=== PATIENT | female | born 1995 | race Caucasian/White ===

== ENCOUNTER 2016-12-16 15:56 | Emergency (ER) | payer SELFPAY ==
--- NOTE | 2016-12-16 16:10 | EDM.PDOC ---
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 w f AB3.LNMP 10/31/2016 came to the ed because of vag spotting and suprapubic pain. No Dysuria. No N/V/D or any other acute medical issues. Onset: Today Onset Date: 12/16/16 Onset Time: 06:00 Duration: Hour(s): Location: Reports: Pelvis Quality: Reports: Other (no pain) Improves with: Reports: None Worsens with: Reports: None Associated Symptoms: Reports: No Other Symptoms Lower Abdomen Pain Score (Numeric/FACES): 5 - Related Data Allergies Allergy/AdvReac Type Severity Reaction Status Date / Time No Known Allergies Allergy Verified 12/16/16 16:08 Home Meds: Home Meds NK [No Known Home Meds] 12/16/16 [History] ED ROS GENERAL - Review of Systems Review Of Systems: See Below Constitutional: Reports: No Symptoms HEENT: Reports: No Symptoms Respiratory: Reports: No Symptoms Cardiovascular: Reports: No Symptoms Endocrine: Reports: No Symptoms GI/Abdominal: Reports: No Symptoms : Reports: Other (vag bleed) Musculoskeletal: Reports: No Symptoms Skin: Reports: No Symptoms Neurological: Reports: No Symptoms Psychiatric: Reports: No Symptoms Hematologic/Lymphatic: Reports: No Symptoms Immunologic: Reports: No Symptoms ED EXAM - Physical Exam Exam: See Below Exam Limited By: No Limitations General Appearance: Alert, WD/WN, No Apparent Distress Eye Exam: Bilateral Eye: Normal Inspection Ears: Normal External Exam Nose: Normal Inspection Throat/Mouth: Normal Inspection Head: Atraumatic, Normocephalic Neck: Normal Inspection Respiratory/Chest: No Respiratory Distress, Lungs Clear Cardiovascular: Normal Peripheral Pulses, Regular Rate, Rhythm, No Edema GI/Abdominal Exam: Normal Bowel Sounds, Soft, Non-Tender, No Organomegaly Rectal Exam: Deferred Neurological: Alert, Oriented, CN II-XII Intact, Normal Cognition Psychiatric: Normal Affect, Normal Mood Skin Exam: Warm, Dry, Intact, Normal Color Lymphatic: No Adenopathy Course - Vital Signs Text/Narrative:: \ 21 y.o. w f AB3.LNMP 10/31/2016 came to the ed because of vag spotting and suprapubic pain. No Dysuria. No N/V/D or any other acute medical issues. PE: WNWD WF, Pelvic exam deferred. Imaging: US pelvic: 4 weeks 9 days old No heart beat, yolk sack present. UA pos mary hematuria ( vag bleed?) Impression: 4 weeks 9 days old with Vag spotting Tx: recommended pelvic rest Plan: D/C with instructions Last Recorded V/S: Last Vital Signs Temp 36.4 C 12/16/16 16:10 Pulse 68 12/16/16 17:21 Resp 16 12/16/16 17:21 BP 125/73 12/16/16 17:21 Pulse Ox 100 12/16/16 17:21 - Orders/Labs/Meds Orders: Active Orders 24 hr Category Date Time Status OB Ltd 1 or More Fetus [US] Routine Exams 12/16/16 16:52 Taken OB Transvaginal [US] Routine Exams 12/16/16 16:52 Taken HCG QUANTITATIVE,SERUM [CHEM] Stat Lab 12/16/16 16:20 Received Labs: Laboratory Tests 12/16/16 12/16/16 12/16/16 Range/Units 16:20 16:20 16:24 WBC 8.8 (4.5-12.0) X10-3/uL RBC 4.51 (3.23-5.20) x10(6)uL Hgb 12.1 (11.5-15.5) g/dL Hct 36.6 (30.0-51.3) % MCV 81.2 (80-96) fL MCH 26.8 L (27.7-33.6) pg MCHC 33.0 (32.2-35.4) g/dL RDW 13.1 (11.5-15.5) % Plt Count 253 (125-369) X10(3)uL MPV 8.3 (7.4-10.4) fL Neut % (Auto) 57.0 (46-82) % Lymph % (Auto) 34.9 (13-37) % [place] % (Auto) 7.2 (4-12) % Eos % (Auto) 1 (1.0-5.0) % Baso % (Auto) 0 (0-2) % Neut # (Auto) 5.0 (1.6-8.3) # Lymph # (Auto) 3.1 (0.6-5.0) # [place] # (Auto) 0.6 (0.0-1.3) # Eos # (Auto) 0.1 (0.0-0.8) # Baso # (Auto) 0.0 (0.0-0.2) # Sodium 138 (135-145) mmol/L Potassium 3.6 (3.5-5.3) mmol/L Chloride 106 (100-110) mmol/L Carbon Dioxide 24 (23-29) mmol/L BUN 13 (5-20) mg/dL Creatinine 0.8 (0.6-1.3) mg/dL Est Cr Clr Drug Dosing 126.21 mL/min Estimated GFR (MDRD) > 60 (>60) BUN/Creatinine Ratio 16.3 (9-20) Glucose 100 (80-116) mg/dL Calcium 9.2 (8.6-10.2) mg/dL Urine Color Red (YELLOW) Urine Appearance Cloudy (CLEAR) Urine pH 9.0 H (5.0-6.5) Ur Specific [place] 1.015 (1.010-1.025) Urine Protein Negative (NEGATIVE) mg/dL Urine Glucose (UA) Normal (NEGATIVE) mg/dL Urine Ketones Negative (NEGATIVE) mg/dL Urine Occult Blood Large H (NEGATIVE) Urine Nitrite Negative (NEGATIVE) Urine Bilirubin Negative (NEGATIVE) Urine Urobilinogen Normal (NEGATIVE) mg/dL Ur Leukocyte Esterase Small H (NEGATIVE) Urine RBC Packed H (0) Urine WBC 0-5 (0) Ur Squamous Epith Cells Occasional (NS,R,O) Urine Bacteria Few H (NS) Departure - Departure Time of Disposition: 17:18 Disposition: Home, Self-Care 01 Condition: Good Clinical Impression: Vaginal spotting Qualifiers: Weeks of gestation: less than 8 weeks Qualified Code(s): Z3A.01 - Less than 8 weeks gestation of - Discharge Information Referrals: Eric Fernando MD [Primary Care Provider] - Forms: ED Department Discharge, ED Return to Work/School Form Additional Instructions: Pelvic rest till vag spotting stops. please f/u with OBGYN, please come back if your symptoms get worse acutely - My Orders Last 24 Hours: My Active Orders 12/16/16 16:20 HCG QUANTITATIVE,SERUM [CHEM] Stat 12/16/16 16:52 OB Ltd 1 or More Fetus [US] Routine OB Transvaginal [US] Routine - Assessment/Plan Last 24 Hours: My Active Orders 12/16/16 16:20 HCG QUANTITATIVE,SERUM [CHEM] Stat 12/16/16 16:52 OB Ltd 1 or More Fetus [US] Routine OB Transvaginal [US] Routine
[2016-12-16 17:22] VITALS: BP 125/73
--- NOTE | 2016-12-18 14:14 | US ---
INDICATION: Bleeding - . OB ULTRASOUND LIMITED: Multiple ultrasonic images revealed prominent endometrial cavity echo, poor visualization of the uterus and endometrium is noted. The endometrial cavity is not adequately visualized. Need endovaginal probe for further evaluation. The ovaries were not adequately visualized. IMPRESSION: Limited study, no gross abnormalities. Intrauterine gestation not identified. Cannot exclude ectopic. Need endovaginal probe ultrasound for further evaluation. INDICATION: Bleeding-/need better visualization of the endometrial cavity and uterus. OB ULTRASOUND TRANSVAGINAL: Utilizing transvaginal probe, multiple ultrasonic images revealed a tiny intrauterine cystic structure in the endometrial cavity, which would be compatible with 4 weeks 6 days gestational age. Compared with the LMP GA of 6 weeks 4 days, this is a significant discrepancy, but should be correlated clinically. A pole is not seen at this time and close follow-up is recommended. No definite myometrial mass was identified. The uterus was not ideally visualized on this examination, however, prominent arcuate vessels are noted. The ovaries measured on the right 1.11 x 2.43 x 1.22 cm. Follicles are present. No adnexal mass lesions or free fluid collections were identified. No definite ectopic could be identified. IMPRESSION: 1. No definite evidence for an ectopic . 2. What appears to be a very early intrauterine gestation of approximately 4 weeks 6 days is seen, but no evidence of a pole is identified, despite use of transvaginal probe. No heart motion was seen. Close follow-up is recommended. No specific bleeding site is identified. MTDD
== END 2016-12-16 17:23 | disposition home or self-care (01) ==
LOC: FB.ED 15:56
DX: O26.851 Spotting complicating pregnancy, first trimester (principal); Z3A.01 Less than 8 weeks gestation of pregnancy
CPT/HCPCS: 36415; 76815; 76817; 80048; 81001; 84702; 85025; 99283; 99284

== ENCOUNTER 2018-11-19 19:50 | Emergency (ER) | payer SELFPAY ==
[2018-11-19] MEDS ORDERED: Cyclobenzaprine 10 MG Tab PO ONE (19:55)
[2018-11-19] MEDS ORDERED: Ketorolac 30 MG/ML SDV IVPUSH ONE (19:55)
[2018-11-19] MEDS ORDERED: HYDROmorphone 2 MG/ML SDV IVPUSH ONE (20:08)
[2018-11-19] MEDS ORDERED: Sodium Chloride 0.9% 1,000 ML IV SCH (20:45)
--- NOTE | 2018-11-19 21:34 | EDM.PDOC ---
ED HPI GENERAL MEDICAL PROBLEM - General Chief Complaint: Lower Extremity Injury/Pain Stated Complaint: LEG PAIN BOTH SIDES Time Seen by Provider: 11/19/18 19:50 Source of Information: Reports: Patient - History of Present Illness INITIAL COMMENTS - FREE TEXT/NARRATIVE: Patient is a 23 yo WF who presented to the ED because sudden onset of severe muscle spasm of her bilateral lower extremities. She was running when the spasm started. She fell because of the pain. She rate it at 10/10,. She also c/o mild lower back pain. there in no lose of bowel or bladder control. Enroute here EMS gave her zofran 4 mg IV,fentanyl 200 mcg IV x1.versed 2 mg ivx1 and her pain is still 10/10. 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 Denies: Wheezing, Pleuritic Chest Pain Cardiovascular: Reports: No Symptoms, Chest Pain, Irregular Heart Rate, Lightheadedness, Palpitations GI/Abdominal: Reports: No Symptoms, Abdominal Pain ED EXAM, GENERAL - Physical Exam Exam: See Below Exam Limited By: No Limitations General Appearance: Alert, No Apparent Distress Eye Exam: Bilateral Eye: PERRL Ears: Normal External Exam, Normal Canal Nose: Normal Inspection, Normal Mucosa, No Blood Throat/Mouth: Normal Inspection, Normal Lips, Normal Teeth, Normal Gums, Normal Oropharynx, Normal Voice, No Airway Compromise Head: Atraumatic, Normocephalic GI/Abdominal: Normal Bowel Sounds, Non-Tender, No Organomegaly, No Distention, No Abnormal Bruit (Female) Exam: Normal External Exam, Normal Speculum Exam, Normal Bimanual Exam Rectal (Female) Exam: Deferred Back Exam: Normal Inspection, Full Range of Motion, CVA Tenderness (L) Extremities: Normal Inspection, Other (instense muscle spasm of the lower ext- bilateral.) Neurological: Alert, Oriented, CN II-XII Intact, Normal Reflexes, No Motor/ Sensory Deficits Psychiatric: Normal Affect, Normal Mood Skin Exam: Warm Course - Vital Signs Text/Narrative:: by EMS: zofran 4 mg IV x1 Fentanyl 2 mg IV x1 versed 2 mg IV x1 by ED: toradol 30 mg IV x1 flexeril 10 mh po x1 dilaudid 2 mg IV x1 dose zofran 4 mg IV He pain level is down to a one. Lab and CT reviewed with the patient and her family. Last Recorded V/S: Last Vital Signs Temp 36.8 C 11/19/18 19:50 Pulse 64 11/19/18 20:54 Resp 18 11/19/18 20:54 BP 111/59 L 11/19/18 20:54 Pulse Ox 98 11/19/18 20:54 - Orders/Labs/Meds Orders: Active Orders 24 hr Category Date Time Status Lumbar Spine wo Cont [CT] Stat Exams 11/19/18 20:00 Ordered Ondansetron [Zofran] Med 11/19/18 21:42 Once 4 mg IVPUSH ONETIME ONE Sodium Chloride 0.9% [Normal Saline] 1,000 ml Med 11/19/18 20:45 Active IV ASDIRECTED Medication Orders Sodium Chloride (Normal Saline) 1,000 mls @ 999 mls/hr IV ASDIRECTED MELISSA Last Admin: 11/19/18 20:42 Dose: 999 mls/hr Labs: Laboratory Tests 11/19/18 11/19/18 11/19/18 Range/Units 20:10 20:10 20:10 WBC 12.9 H (4.5-12.0) X10-3/uL RBC 4.94 (3.23-5.20) x10(6)uL Hgb 13.7 (11.5-15.5) g/dL Hct 40.1 (30.0-51.3) % MCV 81.2 (80-96) fL MCH 27.8 (27.7-33.6) pg MCHC 34.3 (32.2-35.4) g/dL RDW 12.3 (11.5-15.5) % Plt Count 300 (125-369) X10(3)uL MPV 8.6 (7.4-10.4) fL Neutrophils % (Manual) 45 L (46-82) % Lymphocytes % (Manual) 53 H (13-37) % Monocytes % (Manual) 2 L (4-12) % Sodium 141 (135-145) mmol/L Potassium 3.5 (3.5-5.3) mmol/L Chloride 105 (100-110) mmol/L Carbon Dioxide 25 (21-32) mmol/L BUN 16 (7-18) mg/dL Creatinine 1.0 (0.55-1.02) mg/dL Est Cr Clr Drug Dosing 99.24 mL/min Estimated GFR (MDRD) > 60 (>60) BUN/Creatinine Ratio 16.0 (9-20) Glucose 117 H (80-116) mg/dL Calcium 9.4 (8.6-10.2) mg/dL Magnesium 1.7 L (1.8-2.5) mg/dL HCG, Quant < 5 L (<5) mIU/mL Meds: Medications Generic Name Dose Route Start Last Admin Trade Name Freq PRN Reason Stop Dose Admin Sodium Chloride 1,000 mls @ 999 mls/hr 11/19/18 20:45 11/19/18 20:42 Normal Saline IV 999 mls/hr ASDIRECTED MELISSA Administration Discontinued Medications Generic Name Dose Route Start Last Admin Trade Name Freq PRN Reason Stop Dose Admin Cyclobenzaprine HCl 10 mg 11/19/18 19:55 11/19/18 20:08 Flexeril PO 11/19/18 19:56 10 mg ONETIME ONE Administration Hydromorphone HCl 2 mg 11/19/18 20:08 11/19/18 20:26 Dilaudid IVPUSH 11/19/18 20:09 2 mg ONETIME ONE Administration Ketorolac Tromethamine 30 mg 11/19/18 19:55 11/19/18 20:07 Toradol IVPUSH 11/19/18 19:56 30 mg ONETIME ONE Administration Departure - Departure Time of Disposition: 22:00 Disposition: Home, Self-Care 01 Condition: Good Clinical Impression: Muscle spasm of both lower legs - Discharge Information Forms: ED Department Discharge Additional Instructions: apply ice or heat whichever makes the spasm and pain go away. flexeril 10 mg 3 times daily as neded for muscle spam. increase oral fluids ibuprofen 800 mg with tylenol 1000 mg every 8 hours as needed for pain folluw up if symptoms persist - My Orders Last 24 Hours: My Active Orders 11/19/18 20:00 Lumbar Spine wo Cont [CT] Stat 11/19/18 20:45 Sodium Chloride 0.9% [Normal Saline] 1,000 ml IV ASDIRECTED 11/19/18 21:42 Ondansetron [Zofran] 4 mg IVPUSH ONETIME ONE - Assessment/Plan Last 24 Hours: My Active Orders 11/19/18 20:00 Lumbar Spine wo Cont [CT] Stat 11/19/18 20:45 Sodium Chloride 0.9% [Normal Saline] 1,000 ml IV ASDIRECTED 11/19/18 21:42 Ondansetron [Zofran] 4 mg IVPUSH ONETIME ONE
[2018-11-19] MEDS ORDERED: Ondansetron 4 MG/2 ML SDV IVPUSH ONE (21:42)
[2018-11-19 21:56] VITALS: BP 107/48
== END 2018-11-19 22:28 | disposition home or self-care (01) ==
LOC: FB.ED 19:50
DX: M62.838 Other muscle spasm (principal)
CPT/HCPCS: 36415; 72131; 80048; 83735; 84702; 85025; 96361; 96374; 96375; 99284; A9270; J1170; J1885; J2405; J7030

== ENCOUNTER 2019-12-06 21:28 | Emergency (ER) | payer BC, MEDICAID ==
--- NOTE | 2019-12-06 21:51 | EDM.PDOC ---
ED HPI GENERAL MEDICAL PROBLEM - General Stated Complaint: ABDOMINAL PAIN, RIB PAIN, BACK PAIN Time Seen by Provider: 12/06/19 21:48 Source of Information: Reports: Patient History Limitations: Reports: No Limitations - History of Present Illness INITIAL COMMENTS - FREE TEXT/NARRATIVE: Marely complains of right upper back pain x 2 weeks.Went to a chiropractor wth no relief. Tonight she had difficulty breathing associated with it,and wheezing. She also endorses epispastic pain after she drank some alcohol. 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 ED EXAM, GENERAL - Physical Exam Exam: See Below Exam Limited By: No Limitations General Appearance: Alert, No Apparent Distress, Anxious Ears: Normal External Exam Nose: Normal Inspection Throat/Mouth: Normal Inspection Head: Atraumatic Neck: Normal Inspection Respiratory/Chest: No Respiratory Distress, Other (Tender uppewr back,right) Cardiovascular: Normal Peripheral Pulses, Regular Rate, Rhythm, No Edema GI/Abdominal: Normal Bowel Sounds, Soft, Non-Tender Back Exam: Normal Inspection Extremities: Normal Inspection Neurological: Alert, Oriented Psychiatric: Anxious, Tearful Skin Exam: Warm Course - Vital Signs Last Recorded V/S: Last Vital Signs Temp 97.6 F 12/06/19 21:35 Pulse 109 H 12/06/19 21:35 Resp 18 12/06/19 21:35 BP 117/83 12/06/19 21:35 Pulse Ox 99 12/06/19 21:35 - Orders/Labs/Meds Orders: Active Orders 24 hr Category Date Time Status Chest 2V [CR] Stat Exams 12/06/19 21:47 Taken hydrOXYzine HCL [Vistaril] Med 12/06/19 22:45 Once 50 mg IM ONETIME ONE Labs: Laboratory Tests 12/06/19 12/06/19 12/06/19 Range/Units 22:08 22:08 22:08 WBC 8.7 (4.5-12.0) X10-3/uL RBC 4.85 (3.23-5.20) x10(6)uL Hgb 12.7 (11.5-15.5) g/dL Hct 39.4 (30.0-51.3) % MCV 81.3 (80-96) fL MCH 26.2 L (27.7-33.6) pg MCHC 32.3 (32.2-35.4) g/dL RDW 12.2 (11.5-15.5) % Plt Count 317 (125-369) X10(3)uL MPV 7.8 (7.4-10.4) fL Neut % (Auto) 46.8 (46-82) % Lymph % (Auto) 45.1 H (13-37) % [place] % (Auto) 6.6 (4-12) % Eos % (Auto) 1 (1.0-5.0) % Baso % (Auto) 1 (0-2) % Neut # (Auto) 4.1 (1.6-8.3) # Lymph # (Auto) 3.9 (0.6-5.0) # [place] # (Auto) 0.6 (0.0-1.3) # Eos # (Auto) 0.1 (0.0-0.8) # Baso # (Auto) 0.0 (0.0-0.2) # D-Dimer, Quantitative 0.21 (0.0-0.59) mg/LFEU Sodium 141 (135-145) mmol/L Potassium 3.1 L (3.5-5.3) mmol/L Chloride 103 (100-110) mmol/L Carbon Dioxide 28 (21-32) mmol/L BUN 10 (7-18) mg/dL Creatinine 1.0 (0.55-1.02) mg/dL Est Cr Clr Drug Dosing TNP Estimated GFR (MDRD) > 60 (>60) BUN/Creatinine Ratio 10.0 (9-20) Glucose 78 L (80-116) mg/dL Calcium 9.1 (8.6-10.2) mg/dL Total Bilirubin 0.4 (0.1-1.3) mg/dL AST 17 (5-25) IU/L ALT 20 (12-36) U/L Alkaline Phosphatase 98 (56-112) IU/L Total Protein 7.7 (6.0-8.0) g/dL Albumin 4.0 (3.5-5.2) g/dL Globulin 3.7 g/dL Albumin/Globulin Ratio 1.1 Meds: Medications Discontinued Medications Generic Name Dose Route Start Last Admin Trade Name Freq PRN Reason Stop Dose Admin Ketorolac Tromethamine 60 mg 12/06/19 22:45 Toradol IM 12/06/19 22:46 ONETIME ONE Departure - Departure Time of Disposition: 22:46 Disposition: Home, Self-Care 01 Condition: Good Clinical Impression: Upper back pain, Difficulty breathing - Discharge Information Referrals: 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[employer] [Primary Care Provider] - Sepsis Event Note (ED) - Focused Exam Vital Signs: Vital Signs Temp Pulse Resp BP Pulse Ox 12/06/19 21:35 97.6 F 109 H 18 117/83 99 - Problem List & Annotations (1) Upper back pain SNOMED Code(s): 404325129 Code(s): M54.9 - DORSALGIA, UNSPECIFIED Status: Acute Current Visit: Yes (2) Difficulty breathing SNOMED Code(s): 227401476 Code(s): R06.89 - OTHER ABNORMALITIES OF BREATHING Status: Acute Current Visit: Yes - Problem List Review Problem List Initiated/Reviewed/Updated: Yes - My Orders Last 24 Hours: My Active Orders 12/06/19 21:47 Chest 2V [CR] Stat 12/06/19 22:45 hydrOXYzine HCL [Vistaril] 50 mg IM ONETIME ONE - Assessment/Plan Last 24 Hours: My Active Orders 12/06/19 21:47 Chest 2V [CR] Stat 12/06/19 22:45 hydrOXYzine HCL [Vistaril] 50 mg IM ONETIME ONE Plan: All labs,including D dimer were negative. Xray looks fine. I will DC her ,she will need PT. Ketrolac and Vistaril was given
[2019-12-06 22:08] VITALS: BP 117/83; PULSE 109
[2019-12-06] MEDS ORDERED: Ketorolac 60 MG/2 ML SDV IM ONE (22:45)
[2019-12-06] MEDS ORDERED: hydrOXYzine HCl 50 MG/ML SDV IM ONE (22:45)
--- NOTE | 2019-12-08 10:27 | CR ---
INDICATION: Short of breath. Severe pain between scapula when reaching for something or deep breaths. No history of trauma. CHEST, 2 VIEWS: PA and lateral views of the chest were obtained 12/06/19, no comparison. A mild dextroconcave scoliosis of the lower middle thoracic spine is noted. The heart and mediastinum are unremarkable. An active infiltrate, effusion or pneumothorax is not identified. IMPRESSION: No acute process. MTDD
== END 2019-12-06 23:40 | disposition home or self-care (01) ==
LOC: FB.ED 21:28
DX: M54.6 Pain in thoracic spine (principal); R06.02 Shortness of breath; R06.2 Wheezing; R10.13 Epigastric pain
CPT/HCPCS: 36415; 71046; 80053; 85025; 85379; 96372; 99285; J1885; J3410

== ENCOUNTER 2024-12-28 19:36 | Emergency (ER) | payer MEDICAID, OTHER ==
[2024-12-28 19:56] VITALS: BP 125/83; PULSE 76
== END 2024-12-28 21:20 | disposition home or self-care (01) ==
LOC: SUPCPDRO 19:36 → FB.ED 19:36
DX: S93.412A Sprain of calcaneofibular ligament of left ankle, initial encounter (principal); Z91.048 Other nonmedicinal substance allergy status; X50.1XXA Overexertion from prolonged static or awkward postures, initial encounter
CPT/HCPCS: 73610-LT; 99283